=== PATIENT | male | born 1990 | race African-American/Black ===

== ENCOUNTER 2016-04-04 05:49 | Emergency (ER) | payer OTHER ==
[~2016-04-04] VITALS: Ht 177.8 cm; Wt 68.0 kg
[2016-04-04 06:00] VITALS: BP 135/63
[2016-04-04] MEDS ORDERED: NAPR500T3 PO (06:33)
--- NOTE | 2016-04-04 06:34 | PHYS DOC ---
Past Medical History Past Medical History: No Pertinent History Past Surgical History: No Surgical History Alcohol Use: Rarely Drug Use: None Adult General Chief Complaint Chief Complaint: KNEE INJURY [facility] HPI 45-year-old male presents with a right knee injury. He states he fell on his knee a couple days ago twisted it and felt a pop. Since then he has had some swelling and difficulty ambulating secondary to the pain. Tried an Raimundo wrap which has not helped. He is concerned that there is a significant injury inside of his knee.] Review of Systems Review of Systems Constitutional: Denies fever or chills [] Eyes: Denies change in visual acuity, redness, or eye pain [] HENT: Denies nasal congestion or sore throat [] Respiratory: Denies cough or shortness of breath [] Cardiovascular: No additional information not addressed in HPI [] GI: Denies abdominal pain, nausea, vomiting, bloody stools or diarrhea [] : Denies dysuria or hematuria [] Musculoskeletal: Per history of present illness [] Integument: Denies rash or skin lesions [] Neurologic: Denies headache, focal weakness or sensory changes [] Endocrine: Denies polyuria or polydipsia [] Current Medications Current Medications Current Medications Medications (Trade) Dose Ordered Sig/Keerthi Start Time Stop Time Status Last Admin Dose Admin Ketorolac Tromethamine (Toradol Im) 60 mg 1X ONCE 04/04/16 06:30 04/04/16 06:31 UNV Allergies Allergies Allergies Coded Allergies Type Severity Reaction Last Updated Verified No Known Drug Allergies 06/22/14 No Physical Exam Physical Exam Constitutional: Well developed, well nourished, no acute distress, non-toxic appearance. [] HENT: Normocephalic, atraumatic, bilateral external ears normal, oropharynx moist, no oral exudates, nose normal. [] Eyes: PERRLA, EOMI, conjunctiva normal, no discharge. [] Neck: Normal range of motion, no tenderness, supple, no stridor. [] Cardiovascular:Heart rate regular rhythm, no murmur [] Lungs & Thorax: Bilateral breath sounds clear to auscultation [] Abdomen: Bowel sounds normal, soft, no tenderness, no masses, no pulsatile masses. [] Skin: Warm, dry, no erythema, no rash. [] Back: No tenderness, no CVA tenderness. [] Extremities: Right knee ligaments stable including anterior drawer and varus and valgus strain, there is no significant inflammation no patellar apprehension and otherwise no deformity of the right knee. [] Neurologic: Alert and oriented X 3, normal motor function, normal sensory function, no focal deficits noted. [] Psychologic: Affect normal, judgement normal, mood normal. [] Current Patient Data Vital Signs Vital Signs Date Time Temp Pulse Resp B/P Pulse Ox O2 Delivery O2 Flow Rate FiO2 04/04/16 06:00 98.1 72 18 99 Room Air 98.1 EKG EKG [] Radiology/Procedures Radiology/Procedures [] Impressions: Right knee x-ray: Negative exam Course & Med Decision Making Course & Med Decision Making Pertinent Labs and Imaging studies reviewed. (See chart for details) [ED course: Evaluation reveals 25-year-old male with right knee injury. X-ray was negative. He was given a 60 mg Toradol IM to help with pain relief. I've encouraged him to follow up with Dr. Sierra as an outpatient if the pain is not better in the next 7-10 days. We also gave him crutches with specific crutch training.] Dragon Disclaimer Dragon Disclaimer This electronic medical record was generated, in whole or in part, using a voice recognition dictation system. Departure Departure Impression: Primary Impression: Right knee sprain Referrals: NO PCP (PCP) JENNIE SIERRA MD Patient Instructions: Knee Sprain Additional Instructions: Thank you for allowing us to participate in your care today. Followup with your primary care physician in 3 days if your symptoms do not improve. Return to the emergency department you have any new or concerning findings. This should be evaluated by the primary care physician and any necessary consulting services for continued management within a few days after discharge. Return to emergency room if you have any new or concerning symptoms including but not limited to fever, chills, nausea, vomiting, intractable pain, any new rashes, chest pain, shortness of air, uncontrolled bleeding, difficulty breathing, and/or vision loss. You may have been prescribed medication that can change in your level of thinking and ability to operate machinery. These medications include hydrocodone and Ativan. Also, Benadryl has been known to do this as well. Be sure to check with your pharmacist and ask if the medications you've prescribed can affect your level of consciousness. I recommend not operating heavy machinery or driving while on medication such as these. Scripts Naproxen 500 Mg Tablet1 Tab PO BID PRN PAIN #30 TAB Ref 1 Prov:MIHAELA MARTINEZ DO 04/04/16 Problem Qualifiers Primary Impression: Right knee sprain Encounter type: initial encounter Involved ligament of knee: unspecified ligament Qualified Code: S83.91XA - Sprain of unspecified site of right knee, initial encounter MIHAELA MARTINEZ DO Apr 04, 2016 06:34
[2016-04-04] MEDS ORDERED: KETOROLAC TROMETHAMINE 60 MG/2 ML SYRINGE. IM ONE (07:00)
--- NOTE | 2016-04-04 07:24 | RAD ---
Indication pain associated with an injury. AP oblique and lateral views of the right knee were obtained. No bony abnormality is seen
== END 2016-04-04 07:04 | disposition home or self-care (01) ==
LOC: ER 05:49
DX: S83.91XA Sprain of unspecified site of right knee, initial encounter (principal); X50.9XXA Other and unspecified overexertion or strenuous movements or postures, initial encounter; Y93.89 Activity, other specified; Y92.89 Other specified places as the place of occurrence of the external cause; Y99.8 Other external cause status
CPT/HCPCS: 73562; 96372; 99284; J1885

== ENCOUNTER 2016-04-13 07:02 | Emergency (ER) | payer OTHER ==
[~2016-04-13] VITALS: Ht 177.8 cm; Wt 68.0 kg
[~2016-04-13 07:02] MED LIST: NAPR500T3 PO
[2016-04-13 07:22] VITALS: BP 118/76
[2016-04-13] MEDS ORDERED: HYDR-971 PO (07:52)
--- NOTE | 2016-04-13 07:52 | PHYS DOC ---
Past Medical History Past Medical History: No Pertinent History Past Surgical History: No Surgical History Alcohol Use: Rarely Drug Use: None Adult General Chief Complaint Chief Complaint: LOWER EXT PAIN [facility] HPI Patient is a 25 year old male who presents with right knee pain. He states approximately 12 days ago he fell and landed on the medial aspect of his right knee and was seen on April 04 and received a shot in his butt and discharged with Naprosyn. He states he hasn't been able tolerate the Naprosyn he only try to take it once a vomited. States the pain got better but then has gotten worse over the last several days again. He denies any recent injury to it. 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 He denies any calf pain or thigh pain. He's very specific when he points to the medial aspect of his right knee and points with the LCL attaches. Review of Systems Review of Systems Constitutional: Denies fever or chills [] Eyes: Denies change in visual acuity, redness, or eye pain [] HENT: Denies nasal congestion or sore throat [] Respiratory: Denies cough or shortness of breath [] Cardiovascular: No additional information not addressed in HPI [] GI: Denies abdominal pain, nausea, vomiting, bloody stools or diarrhea [] : Denies dysuria or hematuria [] Musculoskeletal: Denies back pain, positive for right knee discomfort [] Integument: Denies rash or skin lesions [] Neurologic: Denies headache, focal weakness or sensory changes [] Endocrine: Denies polyuria or polydipsia [] Allergies Allergies Allergies Coded Allergies Type Severity Reaction Last Updated Verified No Known Drug Allergies 06/22/14 No Physical Exam Physical Exam Constitutional: Well developed, well nourished, no acute distress, non-toxic appearance. [] HENT: Normocephalic, atraumatic, bilateral external ears normal, oropharynx moist, no oral exudates, nose normal. [] Eyes: PERRLA, EOMI, conjunctiva normal, no discharge. [] Neck: Normal range of motion, no tenderness, supple, no stridor. [] Cardiovascular:Heart rate regular rhythm, no murmur [] Lungs & Thorax: Bilateral breath sounds clear to auscultation [] Abdomen: Bowel sounds normal, soft, no tenderness, no masses, no pulsatile masses. [] Skin: Warm, dry, no erythema, no rash. [] Back: No tenderness, no CVA tenderness. [] Extremities: Mild tender palpation over the medial aspect of the right knee, anterior posterior, valgus and varus stress intact, no cyanosis, no clubbing, ROM intact, no edema. [] Neurologic: Alert and oriented X 3, normal motor function, normal sensory function, no focal deficits noted. [] Psychologic: Affect normal, judgement normal, mood normal. [] Current Patient Data Vital Signs Vital Signs Date Time Temp Pulse Resp B/P Pulse Ox O2 Delivery O2 Flow Rate FiO2 04/13/16 07:22 98.2 92 16 100 Room Air 98.2 EKG EKG [] Radiology/Procedures Radiology/Procedures [] Impressions: Right Knee strain Course & Med Decision Making Course & Med Decision Making Pertinent Labs and Imaging studies reviewed. (See chart for details) Raimundo was physical exams is dorsal pedis pulses are intact. He is mildly tender palpation over the medial aspect of his right knee where his LCL attaches. His LCL, MCL, ACL, PCL are all intact to manual stress. We'll discharge with [place], a work note and crutches. He is to follow-up with Dr. Waller if symptoms are not better within the next few days. He also try to get a hinged knee immobilizer at pharmacy. He is instructed to use caution while going upstairs in order to not reinjure his knee. He is agreeable plan being discharge in stable condition. I reviewed his x-ray on April 04 and it did not show any acute abnormalities. Dragon Disclaimer Dragon Disclaimer This electronic medical record was generated, in whole or in part, using a voice recognition dictation system. Departure Departure Impression: Primary Impression: Right knee sprain Disposition: 01 HOME, SELF-CARE Referrals: LUCIANO RAMEY MD Patient Instructions: Combined Knee Ligament Sprain-SportsMed Additional Instructions: You likely strained one of the ligaments in her knee. You will need rested for several days. He can use crutches as needed. He can use Washington as needed for pain. Please do not drive a car while taking Washington as it is a narcotic pain medicine and compared to make you sleepy. Follow-up with Dr. Arias in a week if not better. Return the ER for worsening pain, swelling, redness of your right knee or other concerns. Scripts Hydrocodone/Apap 5-325 (Washington 5-325 Tablet)1 Each Tablet1 Tab PO PRN Q6HRS PRN PAIN #20 TAB Ref 0 Prov:SELVIN URBANO MD 04/13/16 SELVIN URBANO MD Apr 13, 2016 07:52
== END 2016-04-13 08:05 | disposition home or self-care (01) ==
LOC: ER 07:02
DX: S83.91XA Sprain of unspecified site of right knee, initial encounter (principal); W19.XXXA Unspecified fall, initial encounter; Y93.89 Activity, other specified; Y92.89 Other specified places as the place of occurrence of the external cause; Y99.8 Other external cause status
CPT/HCPCS: 99283

== ENCOUNTER 2017-07-03 06:18 | Emergency (ER) | payer SELFPAY | END 2017-07-03 07:05 | disposition home or self-care (01) | LOC: ER 06:18 | DX: S23.3XXA Sprain of ligaments of thoracic spine, initial encounter (principal); F17.210 Nicotine dependence, cigarettes, uncomplicated; X58.XXXA Exposure to other specified factors, initial encounter; Y93.89 Activity, other specified; Y92.89 Other specified places as the place of occurrence of the external cause; Y99.8 Other external cause status | CPT/HCPCS: 99283 ==

== ENCOUNTER 2018-03-03 15:08 | Emergency (ER) | payer OTHER ==
[~2018-03-03] VITALS: Ht 177.8 cm; Wt 63.5 kg
[~2018-03-03 15:08] MED LIST changes: +CYCL10TA2 PO; +HYDR-3164 PO; +NAPR-514 PO; -NAPR500T3 PO
[2018-03-03 15:38] VITALS: BP 107/58
--- NOTE | 2018-03-03 15:41 | PHYS DOC ---
Past Medical History Past Medical History: No Pertinent History Past Surgical History: No Surgical History Alcohol Use: Occasionally Drug Use: None Adult General Chief Complaint Chief Complaint: HAND PROBLEM HPI HPI Patient is a 27 year old male with no significant medical history who presents to the ED today with moderate pain to the right hand that began after he punched a pole. Patient is right-handed. States pain is worse on palpation to the area. Has not taken anything for his pain. Review of Systems Review of Systems Constitutional: Denies fever or chills [] Musculoskeletal: Reports right hand pain Integument: Denies rash or skin lesions [] Neurologic: Denies headache, focal weakness or sensory changes [] All other systems were reviewed and found to be within normal limits, except as documented in this note. Allergies Allergies Allergies Coded Allergies Type Severity Reaction Last Updated Verified No Known Drug Allergies 06/22/14 No Physical Exam Physical Exam Constitutional: Well developed, well nourished, no acute distress, non-toxic appearance. [] Skin: Warm, dry, no erythema, no rash. [] Back: No tenderness, no CVA tenderness. [] Extremities: Right hand with no obvious deformity. Small amount of soft tissue swelling noted on the dorsal aspect of the right hand. Full range of motion to the right hand and fingers. Adequate radial, medial, ulnar sensation to the right hand. +2 right radial pulse. Cap refill less than 2 seconds the right fingers. Neurologic: Alert and oriented X 3, normal motor function, normal sensory function, no focal deficits noted. [] Psychologic: Affect normal, judgement normal, mood normal. [] Current Patient Data Vital Signs Vital Signs Date Time Temp Pulse Resp B/P (MAP) Pulse Ox O2 Delivery O2 Flow Rate FiO2 03/03/18 15:38 98.5 94 16 107/58 (74) 97 Room Air 98.5 EKG EKG [] Radiology/Procedures Radiology/Procedures []PROCEDURE: HAND RIGHT 3V EXAM: Right hand, 3 views. HISTORY: Punched a wall. COMPARISON: None. FINDINGS: 3 views of the right hand are obtained. There is a healed distal fifth metacarpal fracture. No acute fracture is seen. IMPRESSION: Healed fifth metacarpal fracture. Electronically signed by: Maricruz Day MD (03/03/2018 3:51 PM) [place] [id number] DICTATED and SIGNED BY: MARICRUZ DAY MD DATE: 03/03/18 1550 Course & Med Decision Making Course & Med Decision Making Pertinent Labs and Imaging studies reviewed. (See chart for details) This is a 27-year-old male patient presenting to the ED today with complaints of right hand pain after punching a pole. Right hand x-rays interpreted by radiologist are negative for any acute findings. Patient was discharged to home. Ice elevation encouraged. OTC pain relievers. Provided instructions to follow-up with orthopedic doctor in 1-2 weeks as needed. Dragon Disclaimer Dragon Disclaimer This electronic medical record was generated, in whole or in part, using a voice recognition dictation system. Departure Departure Impression: Primary Impression: Contusion of right hand Disposition: HOME, SELF-CARE Condition: STABLE Referrals: NO PCP (PCP) LUCIANO RAMEY MD follow up in 1-2 weeks Patient Instructions: Contusion, [id number] Additional Instructions: You were evaluated in the emergency room for right hand contusion. Your right hand x-rays are negative for any acute findings. Ice and elevate the extremity. Take [id number] pain relievers as needed. You can follow-up with the provided orthopedic doctor in 1-2 weeks as needed. Problem Qualifiers Primary Impression: Contusion of right hand Encounter type: initial encounter Qualified Codes: S60.221A - Contusion of right hand, initial encounter IWONA OROPEZA APRN Mar 03, 2018 15:41
--- NOTE | 2018-03-03 15:55 | RAD ---
EXAM: Right hand, 3 views. HISTORY: Punched a wall. COMPARISON: None. FINDINGS: 3 views of the right hand are obtained. There is a healed distal fifth metacarpal fracture. No acute fracture is seen. IMPRESSION: Healed fifth metacarpal fracture. Electronically signed by: Maricruz Day MD (03/03/2018 3:51 PM) [facility]
== END 2018-03-03 16:07 | disposition home or self-care (01) ==
LOC: ER 15:08
DX: S60.221A Contusion of right hand, initial encounter (principal); W22.01XA Walked into wall, initial encounter; Y93.89 Activity, other specified; Y92.89 Other specified places as the place of occurrence of the external cause; Y99.8 Other external cause status
CPT/HCPCS: 73130; 99283; 99284

== ENCOUNTER 2018-03-14 05:43 | Emergency (ER) | payer OTHER ==
[~2018-03-14] VITALS: Ht 180.3 cm; Wt 68.0 kg
[2018-03-14 05:44] VITALS: BP 107/69
--- NOTE | 2018-03-14 06:23 | PHYS DOC ---
Past Medical History Past Medical History: No Pertinent History Past Surgical History: No Surgical History Alcohol Use: Occasionally Drug Use: Marijuana Adult General Chief Complaint Chief Complaint: HAND PROBLEM HPI HPI Patient is a 27 year old male who presents with follow up for hand injury. Patient was seen in the ER on 03/03 for a contusion to the right hand after striking something with a closed fist. He had negative xrays at that time. Presents today for recheck with complaints of worsening pain and swelling. Review of Systems Review of Systems Constitutional: Denies fever HENT: Denies Respiratory: Denies Musculoskeletal: Denies back pain Integument: Denies rash Neurologic: Denies All other systems were reviewed and found to be within normal limits, except as documented in this note. Allergies Allergies Allergies Coded Allergies Type Severity Reaction Last Updated Verified No Known Drug Allergies 06/22/14 No Physical Exam Physical Exam Constitutional: Well developed, well nourished, no acute distress, non-toxic appearance HENT: Normocephalic, atraumatic, bilateral external ears normal, oropharynx moist Neck: Normal range of motion Lungs & Thorax: Bilateral breath sounds clear to auscultation Skin: Warm, dry, no erythema Extremities: swelling over base of right fifth MTC, distal cap refill < 2 seconds. all flexor/extensor mechanisms intact. Neurologic: Alert and oriented X 3 Psychologic: Affect normal Current Patient Data Vital Signs Vital Signs Date Time Temp Pulse Resp B/P (MAP) Pulse Ox O2 Delivery O2 Flow Rate FiO2 03/14/18 05:44 98.1 80 16 107/69 (82) 98 Room Air 98.1 EKG EKG [] Radiology/Procedures Radiology/Procedures [] Course & Med Decision Making Course & Med Decision Making Pertinent Labs and Imaging studies reviewed. (See chart for details) Is evaluated in the ER for a recheck of his right hand. Initial imaging was negative. Repeat x-rays were completed today. There are no new areas of healing seen. Patient is provided reassurance and advised to use [id number] pain medications. He is cleared to return to work. Discharged to home. Follow up with orthopedics as previously recommended but only as needed. Dragon Disclaimer Dragon Disclaimer This electronic medical record was generated, in whole or in part, using a voice recognition dictation system. Departure Departure Disposition: HOME, SELF-CARE Condition: GOOD Referrals: NO PCP (PCP) ROX HOUSTON DO Mar 14, 2018 06:23
--- NOTE | 2018-03-14 07:38 | RAD ---
Right hand, 3 views, 03/14/2018: HISTORY: Injury There is mild deformity of the distal fifth metacarpal compatible with an old healed fracture. No acute fracture is identified. IMPRESSION: No acute bony abnormality is detected. Electronically signed by: Alvino Campbell MD (03/14/2018 7:33 AM) [facility]
== END 2018-03-14 06:33 | disposition home or self-care (01) ==
LOC: ER 05:43
DX: S60.221D Contusion of right hand, subsequent encounter (principal); W22.8XXD Striking against or struck by other objects, subsequent encounter
CPT/HCPCS: 73130; 99283

== ENCOUNTER 2019-03-06 10:23 | Emergency (ER) | payer SELFPAY ==
[~2019-03-06] VITALS: Ht 180.3 cm; Wt 65.8 kg
[2019-03-06] MEDS ORDERED: ONDANSETRON ODT 4 MG TAB.RAPDIS. PO ONE (11:00)
--- NOTE | 2019-03-06 11:26 | RAD ---
CT HEAD WO CONTRAST Clinical indications: Left-sided headache. Nausea and vomiting. Recent head injury 1 week ago. COMPARISON: None available. Technique: Noncontrast axial cross sectional scanning of the head was performed. PQRS compliance Statement One or more of the following individualized dose reduction techniques were utilized for this study: 1. Automated exposure control 2. Adjustment of the mA and/or kV according to patient size 3. Use of iterative reconstruction technique Findings: No acute intracranial hemorrhage or midline shift or mass-effect or hydrocephalus or extra-axial fluid collection is seen. No focal hypodense area or sulci effacement is seen to indicate an acute infarct or edema radiographically. No skull fracture or pneumocephalus is seen. No opacification of the mastoid sinuses or the middle ear cavities or the paranasal sinuses is seen. The maxillary sinuses are not completely seen in this study. Impression: No acute intracranial abnormality is seen. Electronically signed by: Dakota Adan MD (03/06/2019 11:23 AM) [id number]
--- NOTE | 2019-03-06 11:35 | PHYS DOC ---
Past Medical History Past Medical History: No Pertinent History Past Surgical History: No Surgical History Alcohol Use: Occasionally Drug Use: Marijuana Adult General Chief Complaint Chief Complaint: HEADACHE HPI HPI Patient is a 28 year old AA male, accompanied by his significant other, who presents to the emergency department with complaints of a headache behind his left eye. Patient states he has had intermittent headaches ever since he hit his head on a wall on February 26, 2018. He denies any loss of consciousness with head injury. He reports that he did vomit 3 times this morning. Until today he denies any nausea or vomiting. He states that today he has been sensitive to the light. He denies any blurred vision. He states that he has been seeing spots on occasion since the head injury. Patient denies any neck, back, or ear pain. He denies any bleeding from his nose or his ears. Patient states that at approximately 10:00 he took 2 BC powders and his headache decreased from a 10 out of 10 on the pain scale to a 5 out of 10 on pain scale. Patient denies any need for additional pain medication at this time. He currently complains of nausea. He denies any numbness, tingling, weakness, difficulty speaking, or i ncoordination. Fe reports a history of migraines when he was a child but denies having any migraines for several years. All other ROS is neg unless otherwise noted in HPI. Review of Systems Review of Systems See Above Current Medications Current Medications Current Medications Medications (Trade) Dose Ordered Sig/Keerthi Start Time Stop Time Status Last Admin Dose Admin Ondansetron HCl (Zofran Odt) 4 mg 1X ONCE 03/06/19 11:00 03/06/19 11:01 DC 03/06/19 11:11 4 MG Allergies Allergies Allergies Coded Allergies Type Severity Reaction Last Updated Verified No Known Drug Allergies 06/22/14 No Physical Exam Physical Exam See Above Constitutional: Well developed, well nourished, no acute distress, non-toxic appearance. [] HENT: Normocephalic, atraumatic, bilateral external ears normal, lateral TMs normal, posterior pharynx normal, oropharynx moist, no oral exudates, nose normal. [] Eyes: PERRLA, EOMI, conjunctiva normal, no discharge. [] Neck: Normal range of motion, no tenderness, supple, no stridor. [] Cardiovascular:Heart rate regular rhythm, no murmur [] Lungs & Thorax: Bilateral breath sounds clear to auscultation, Respirations even and unlabored, no retractions, no respiratory distress [] Abdomen: soft, no tenderness, no masses, no pulsatile masses. [] Skin: Warm, dry, no erythema, no rash. [] Back: No tenderness Extremities: No cyanosis, ROM intact, no edema. [] Neurologic: Alert and oriented X 3, normal motor function, normal sensory function, CN II-CN VII intact, no focal deficits noted. [] Psychologic: Affect normal, judgement normal, mood normal. [] EKG EKG [] Radiology/Procedures Radiology/Procedures PROCEDURE: CT HEAD WO CONTRAST CT HEAD WO CONTRAST Clinical indications: Left-sided headache. Nausea and vomiting. Recent head injury 1 week ago. COMPARISON: None available. Technique: Noncontrast axial cross sectional scanning of the head was performed. PQRS compliance Statement One or more of the following individualized dose reduction techniques were utilized for this study: 1. Automated exposure control 2. Adjustment of the mA and/or kV according to patient size 3. Use of iterative reconstruction technique Findings: No acute intracranial hemorrhage or midline shift or mass-effect or hydrocephalus or extra-axial fluid collection is seen. No focal hypodense area or sulci effacement is seen to indicate an acute infarct or edema radiographically. No skull fracture or pneumocephalus is seen. No opacification of the mastoid sinuses or the middle ear cavities or the paranasal sinuses is seen. The maxillary sinuses are not completely seen in this study. Impression: No acute intracranial abnormality is seen. [] Course & Med Decision Making Course & Med Decision Making Pertinent Labs and Imaging studies reviewed. (See chart for details) [] Dragon Disclaimer Dragon Disclaimer This electronic medical record was generated, in whole or in part, using a voice recognition dictation system. Departure Departure Impression: Primary Impression: Migraine Disposition: 01 HOME, SELF-CARE Condition: STABLE Referrals: NO PCP (PCP) Patient Instructions: Migraine Headache, [id number] Additional Instructions: Fill prescription and take as directed for pain. Home to rest in a cool, dark room. Follow-up with your primary care doctor next week. Return to the ER if symptoms worsen. Scripts Ibuprofen (IBUPROFEN) 800 Mg Tablet 800 MG PO PRN Q6HRS PRN for PAIN for 5 Days, #20 TAB 0 Refills Prov: MIGUELITO ORTEGA [employer] 03/06/19 Problem Qualifiers Primary Impression: Migraine Migraine type: unspecified Status migrainosus presence: without status migrainosus Intractability: not intractable Qualified Codes: G43.909 - Migraine, unspecified, not intractable, without status migrainosus MIGUELITO ORTEGA [employer] Mar 06, 2019 11:35
[2019-03-06] MEDS ORDERED: IBUP-1060 PO (11:51)
[2019-03-06 12:03] VITALS: BP 111/63
== END 2019-03-06 12:08 | disposition home or self-care (01) ==
LOC: ER 10:23
DX: G43.909 Migraine, unspecified, not intractable, without status migrainosus (principal); R11.2 Nausea with vomiting, unspecified; F12.90 Cannabis use, unspecified, uncomplicated
CPT/HCPCS: 70450; 99284; Q0162